=== PATIENT | male | born 1985 | race Caucasian/White ===

== ENCOUNTER → 2020-02-23 | Outpatient (CLI) | payer OTHER | LOC: COL.RAD 02-19 11:00 | DX: K44.9 Diaphragmatic hernia without obstruction or gangrene (principal) ==

== ENCOUNTER → 2021-07-12 | Outpatient (CLI) | payer OTHER | LOC: COL.PUL 12:47 | DX: R06.02 Shortness of breath (principal) | CPT/HCPCS: J7674 ==